=== PATIENT | male | born 1985 | race Caucasian/White ===

== ENCOUNTER 2016-04-12 19:19 | Emergency (ER) | payer OTHER ==
[2016-04-12 19:36] VITALS: BP 120/80; PULSE 58; RESP 12; TEMP 98.2; O2SAT 99
--- NOTE | 2016-04-12 20:09 | EDPHY ---
H & P Time Seen by Provider: 04/12/16 19:40 HPI/ROS: CHIEF COMPLAINT: left index finger wound check HISTORY OF PRESENT ILLNESS: 31-year-old male presents the emergency department from his primary care doctor for a wound check of his left index finger. Patient has sutures placed in his nail bed and nail from getting it caught in a bicycle chain 4 days ago, as he was following up for his 1st wound check and his primary care doctor was unable to removed the bandage as it was stuck with dried blood, he presents to the ER for wound check. Smoking Status: Never smoked Physical Exam: GEN: Awake, alert, oriented, no acute distress RESP: nl resp effort MSK: Left index finger with full flexion and extension at all joints, sensation intact to light touch SKIN: Sutures in place to tip of left index finger, no drainage, no erythema, no signs of infection. Constitutional: Initial Vital Signs Temperature (C) 36.8 C 04/12/16 19:34 Heart Rate 58 L 04/12/16 19:34 Respiratory Rate 12 04/12/16 19:34 Blood Pressure 120/80 04/12/16 19:34 O2 Sat (%) 99 04/12/16 19:34 O2 Delivery Mode Room Air Allergies/Adverse Reactions: Sulfa (Sulfonamide Antibiotics) Allergy (Verified 04/12/16 19:33) Home Medications: Medication Instructions Recorded Keflex 04/12/16 [place] 5/325 (*) 04/12/16 MDM/Departure - Depart Disposition: Home, Routine, Self-Care Clinical Impression: Visit for wound check Condition: Good Instructions: Acute Wound Care (ED) Additional Instructions: Wash daily with soap and water and place new bandage. Take your antibiotics as prescribed. Take 600 mg of ibuprofen every 8 hours with food for pain, take your hydrocodone as needed for severe pain. Follow-up with your primary care doctor for suture removal as directed. Return to the emergency department for any signs of infection, fevers, pain, drainage, redness. Referrals: Jessy Gonzalez PA [Primary Care Provider] - As per Instructions
== END 2016-04-12 20:27 | disposition home or self-care (01) ==
DX: Z48.01 Encounter for change or removal of surgical wound dressing (principal)
CPT/HCPCS: G0463